=== PATIENT | male | born 1960 | race American Indian/Alaskan Native ===

== ENCOUNTER 2017-05-10 06:00 | Emergency (ER) | payer BC ==
[2017-05-10 06:34] LABS: Bilirubin,Urine Negative (Negative); Blood,Urine Negative (Negative); Ketones,Urine Negative (Negative); Leukocyte Esterase,Urine Negative (Negative); Nitrite,Urine Negative (Negative); Protein,Urine <15 mg/dL mg/dL (Negative); Urobilinogen,Urine < 2.0 mg/dL (<2.0)
[2017-05-10 06:36] LABS: RBC,Urine < 1.0 /HPF (0.0-6.0); WBC,Urine < 1.0 /HPF (0.0-6.0)
[2017-05-10] MEDS ORDERED: SUBLIMAZE IV ONE (08:34)
[2017-05-10] MEDS ORDERED: ZOFRAN IV ONE (08:34)
--- NOTE | 2017-05-10 08:45 | Emergency Department Report ---
HPI - General Chief Complaint: Back Pain/Injury Time Seen by Provider: 05/10/17 08:29 - HPI HPI: Room 3. The patient is a 57-year-old male presenting with a chief complaint of right flank pain. Patient states since yesterday has had a constant sharp pain in his right flank. Patient denies nausea/vomiting, dysuria, hematuria or fever. Patient denies previous episodes of same. The patient gives his pain a score of 9/10. Location: Right flank Duration: Constant since yesterday Quality: Sharp Severity: 9/10 Modifying factors: [see above] Context: [see above] Mode of transportation: [not driving] ED Past Medical Hx - Past Medical History Previous Medical History?: No - Surgical History Past Surgical History?: Yes Additional Surgical History: myleogram - Family History Family history: no significant - Social History Smoking Status: Never Smoker Substance Use Type: None - Medications Home Medications: Home Medications Medication Instructions Recorded Confirmed Last Taken Type Ibuprofen [Motrin 800 MG tab] 800 mg PO Q8HR PRN #20 tablet 05/10/17 Unknown Rx traMADol [Ultram] 50 mg PO Q6HR PRN #14 tablet 05/10/17 Unknown Rx ED Review of Systems ROS: Stated complaint: FLANK PAIN Other details as noted in HPI Comment: All other systems reviewed and negative Constitutional: denies: chills, fever Eyes: denies: eye pain, eye discharge, vision change ENT: denies: ear pain, throat pain Respiratory: denies: cough, shortness of breath, wheezing Cardiovascular: denies: chest pain, palpitations Endocrine: no symptoms reported Gastrointestinal: denies: abdominal pain, nausea, vomiting Genitourinary: denies: hematuria Musculoskeletal: back pain Skin: denies: rash, lesions Neurological: denies: headache, weakness, paresthesias Psychiatric: denies: anxiety, depression Hematological/Lymphatic: denies: easy bleeding, easy bruising Physical Exam - Physical Exam Vital Signs: Vital Signs 05/10/17 05/10/17 05/10/17 06:04 08:13 08:15 Temperature 97.9 F Pulse Rate 78 63 Respiratory 19 Rate Blood Pressure 143/97 132/88 O2 Sat by Pulse 99 98 99 Oximetry 05/10/17 08:31 Temperature Pulse Rate Respiratory 18 Rate Blood Pressure O2 Sat by Pulse 98 Oximetry Physical Exam: GENERAL: The patient is well-developed well-nourished male lying on stretcher not appearing to be in acute distress. [] HEENT: Normocephalic. Atraumatic. Extraocular motions are intact. Patient has moist mucous membranes. NECK: Supple. Trachea midline CHEST/LUNGS: Clear to auscultation. There is no respiratory distress noted. HEART/CARDIOVASCULAR: Regular. There is no tachycardia. There is no gallop rub or murmur. ABDOMEN: Abdomen is soft, nontender. Patient has normal bowel sounds. There is no abdominal distention. SKIN: There is no rash. There is no edema. There is no diaphoresis. NEURO: The patient is awake, alert, and oriented. The patient is cooperative. The patient has normal speech MUSCULOSKELETAL: There is no CVA tenderness. There is no evidence of acute injury. ED Course Vital Signs 05/10/17 05/10/17 05/10/17 06:04 08:13 08:15 Temperature 97.9 F Pulse Rate 78 63 Respiratory 19 Rate Blood Pressure 143/97 132/88 O2 Sat by Pulse 99 98 99 Oximetry 05/10/17 08:31 Temperature Pulse Rate Respiratory 18 Rate Blood Pressure O2 Sat by Pulse 98 Oximetry ED Medical Decision Making - Lab Data Result diagrams: 05/10/17 08:58 05/10/17 08:58 Laboratory Tests 05/10/17 05/10/17 05/10/17 06:12 08:58 08:58 WBC 6.0 RBC 5.20 H Hgb 14.1 Hct 43.9 MCV 84 MCH 27 L MCHC 32 RDW 14.6 Plt Count 220 Add Manual Diff Complete Total Counted 100 Seg Neutrophils % Whipped Topping Mixer Seg Neuts % (Manual) 39.0 L Band Neutrophils % 3.0 Lymphocytes % (Manual) 45.0 H Reactive Lymphs % (Man) 0 Monocytes % (Manual) 8.0 H Eosinophils % (Manual) 5.0 H Basophils % (Manual) 0 Metamyelocytes % 0 Myelocytes % 0 Promyelocytes % 0 Blast Cells % 0 Nucleated RBC % Not Reportable Seg Neutrophils # Man 2.3 Band Neutrophils # 0.2 Lymphocytes # (Manual) 2.7 Abs React Lymphs (Man) 0.0 Monocytes # (Manual) 0.5 Eosinophils # (Manual) 0.3 Basophils # (Manual) 0.0 Metamyelocytes # 0.0 Myelocytes # 0.0 Promyelocytes # 0.0 Blast Cells # 0.0 WBC Morphology Not Reportable Hypersegmented Neuts Not Reportable Hyposegmented Neuts Not Reportable Hypogranular Neuts Not Reportable Smudge Cells Not Reportable Toxic Granulation Not Reportable Toxic Vacuolation Not Reportable Dohle Bodies Not Reportable Pelger-Huet Anomaly Not Reportable Nolan Rods Not Reportable Platelet Estimate Not Reportable Clumped Platelets Not Reportable Plt Clumps, EDTA Not Reportable Large Platelets Not Reportable Giant Platelets Not Reportable Platelet Satelliting Not Reportable Plt Morphology Comment Not Reportable RBC Morphology Not Reportable Dimorphic RBCs Not Reportable Polychromasia Not Reportable Hypochromasia Not Reportable Poikilocytosis Not Reportable Anisocytosis Few Microcytosis Not Reportable Macrocytosis Not Reportable Spherocytes Not Reportable Pappenheimer Bodies Not Reportable Sickle Cells Not Reportable Target Cells Not Reportable Tear Drop Cells Not Reportable Ovalocytes Not Reportable Helmet Cells Not Reportable Vaneg[place] Bodies Not Reportable [place] Rings Not Reportable [place] Cells Not Reportable Bite Cells Not Reportable Crenated Cell Not Reportable Elliptocytes Not Reportable Acanthocytes (Spur) Not Reportable Rouleaux Not Reportable Hemoglobin C Crystals Not Reportable Schistocytes Not Reportable Malaria parasites Not Reportable Henry Bodies Not Reportable Hem Pathologist Commnt No Sodium 139 Potassium 3.9 Chloride 102.6 Carbon Dioxide 26 Anion Gap 14 BUN 16 Creatinine 0.8 Estimated GFR > 60 BUN/Creatinine Ratio 20 Glucose 118 H Calcium 8.8 Total Bilirubin 0.20 AST 34 ALT 35 Alkaline Phosphatase 55 Total Protein 6.9 Albumin 3.9 Albumin/Globulin Ratio 1.3 Urine Color Yellow Urine Turbidity Clear Urine pH 6.0 Ur Specific [place] 1.015 Urine Protein <15 mg/dl Urine Glucose (UA) Negative Urine Ketones Negative Urine Blood Negative Urine Nitrite Negative Urine Bilirubin Negative Urine Urobilinogen < 2.0 Ur Leukocyte Esterase Negative Urine WBC (Auto) < 1.0 Urine RBC (Auto) < 1.0 - Radiology Data Radiology results: report reviewed (CT abdomen and pelvis), image reviewed (CT abdomen and pelvis) CT ABDOMEN AND PELVIS WITHOUT AND WITH CONTRAST INDICATION: Right flank pain. COMPARISON: None similar. FINDINGS: Abdomen and pelvis CT performed before and after intravenous administration of 100 cc of Omnipaque 300. LUNG BASES: Bibasilar dependent atelectasis posteriorly and mild right basilar atelectasis. Top normal heart size. Nonspecific distal esophageal wall prominence/thickening, not excluded for gastroesophageal reflux and/or hiatal hernia, amongst others. Right hemidiaphragm slightly elevated. ABDOMEN: Precontrast images demonstrate no radiopaque gallstones or renal calculi. Postcontrast images demonstrate unremarkable liver, spleen, gallbladder, pancreas, adrenals, aorta, IVC and kidneys. Approximately 1 cm right renal cortical cyst medially. No ascites or size significant adenopathy. Nonopacified GI tract evaluation limited, though grossly nonobstructive. Normal appendix. Predominantly ascending and redundant transverse colon stool/possible constipation. Numerous descending colon diverticuli. Fat-containing umbilical hernia with a transverse defect of 1.5 cm. PELVIS: Urinary bladder, seminal vesicles, prostate and rectosigmoid within normal limits for age. No free fluid or significant adenopathy. No acute osseous process. CONCLUSION: No acute abdomen or pelvic CT abnormality with various incidental findings, as above. Please correlate. Thank you for the opportunity to participate in this patient's care. Transcribed By: RS Dictated By: MARGO POLANCO MD Electronically Authenticated By: MARGO POLANCO MD Signed Date/Time: 05/10/17 1100 DD/ 1053 TD/TT: 05/10/17 1100 - Differential Diagnosis renal colic, aortic dissection, pyelonephritis Critical care attestation.: If time is entered above; I have spent that time in minutes in the direct care of this critically ill patient, excluding procedure time. ED Disposition Clinical Impression: Acute right flank pain Disposition: DC-01 TO HOME OR SELFCARE Is pt being admited?: No Does the pt Need Aspirin: No Condition: Stable Instructions: Flank Pain (ED) Additional Instructions: Return to the emergency department immediately should you develop worsening symptoms, fever, inability to tolerate food or liquid or any other concerns. Prescriptions: Ibuprofen [Motrin 800 MG tab] 800 mg PO Q8HR PRN #20 tablet PRN Reason: Pain traMADol [Ultram] 50 mg PO Q6HR PRN #14 tablet PRN Reason: Pain Referrals: PRIMARY CARE, [Primary Care Provider] - 3-5 Days MELANY RAMÍREZ MD [Staff Physician] - 3-5 Days (Dr. Ramírez is an orthopedic surgeon. Please follow-up with him for further evaluation) Time of Disposition: 11:26
[2017-05-10 09:16] LABS: Hematocrit 43.9 % (35.5-45.6); Hemoglobin 14.1 gm/dl (11.8-15.2); Mean Corpuscular HGB Conc 32 % (32-34); Mean Corpuscular Hemoglobin 27 pg (28-32); Mean Corpuscular Volume 84 fl (84-94); Platelet Count 220 K/mm3 (140-440); Red Cell Distribution Width 14.6 % (13.2-15.2)
[2017-05-10 09:32] LABS: Alanine Aminotransferase 35 units/L (7-56); Albumin 3.9 g/dL (3.9-5); Albumin/Globulin Ratio 1.3 %; Alkaline Phosphatase 55 units/L (35-129); Anion Gap 14 mmol/L; BUN/Creatinine Ratio 20; Blood Urea Nitrogen 16 mg/dL (9-20); Calcium 8.8 mg/dL (8.4-10.2); Carbon Dioxide 26 mmol/L (22-30); Chloride 102.6 mmol/L (98-107); Glucose 118 mg/dL (75-100); Potassium 3.9 mmol/L (3.6-5.0); Sodium 139 mmol/L (137-145); Total Protein 6.9 g/dL (6.3-8.2)
[2017-05-10 10:04] LABS: Basophils % (Manual) 0 % (0.0-1.8); Blastocytes % (Manual) 0 %
[2017-05-10 10:05] LABS: Anisocytosis Few; Diff Status Complete
--- NOTE | 2017-05-10 11:05 | Cat Scan Report ---
CT ABDOMEN AND PELVIS WITHOUT AND WITH CONTRAST INDICATION: Right flank pain. COMPARISON: None similar. FINDINGS: Abdomen and pelvis CT performed before and after intravenous administration of 100 cc of Omnipaque 300. LUNG BASES: Bibasilar dependent atelectasis posteriorly and mild right basilar atelectasis. Top normal heart size. Nonspecific distal esophageal wall prominence/thickening, not excluded for gastroesophageal reflux and/or hiatal hernia, amongst others. Right hemidiaphragm slightly elevated. ABDOMEN: Precontrast images demonstrate no radiopaque gallstones or renal calculi. Postcontrast images demonstrate unremarkable liver, spleen, gallbladder, pancreas, adrenals, aorta, IVC and kidneys. Approximately 1 cm right renal cortical cyst medially. No ascites or size significant adenopathy. Nonopacified GI tract evaluation limited, though grossly nonobstructive. Normal appendix. Predominantly ascending and redundant transverse colon stool/possible constipation. Numerous descending colon diverticuli. Fat-containing umbilical hernia with a transverse defect of 1.5 cm. PELVIS: Urinary bladder, seminal vesicles, prostate and rectosigmoid within normal limits for age. No free fluid or significant adenopathy. No acute osseous process. CONCLUSION: No acute abdomen or pelvic CT abnormality with various incidental findings, as above. Please correlate. Thank you for the opportunity to participate in this patient's care.
[2017-05-10 11:52] VITALS: BP 129/81
== END 2017-05-10 11:51 | disposition home or self-care (01) ==
LOC: ED 06:00
DX: R10.30 Lower abdominal pain, unspecified (principal)
CPT/HCPCS: 36415; 74178; 80053; 81001; 85007; 85025; 96374; 96375; 99284; J2405; J3010; Q9967

== ENCOUNTER 2017-09-04 04:53 | Emergency (ER) | payer BC ==
[2017-09-04 05:18] VITALS: BP 132/85
--- NOTE | 2017-09-04 05:27 | Emergency Department Report ---
ED ENT HPI - General Chief complaint: Sore Throat Stated complaint: SORE THROAT,RECTUM PAIN Time Seen by Provider: 09/04/17 05:21 Source: patient Mode of arrival: Ambulatory Limitations: No Limitations - History of Present Illness Initial comments: Patient is a 57-year-old -[place] male who presents for sore throat 1 week pain describing it as is exacerbated by swallowing pain worse tonight patient states nocturnal fever has not checked but states fever there is no shortness of breath no ear pain there is no headache no nausea no vomiting patient denies cough . MD complaint: sore throat, difficulty swallowing Onset/Timin -: week(s) Location: throat Severity: moderate Severity scale (0 -10): 4 Quality: burning, aching, sharp Consistency: intermittent Improves with: none Worsens with: none Associated Symptoms: pain with swallowing, sore throat. denies: fever, cough, gum swelling, toothache, tinnitus, discharge from ear, rhinorrhea - Related Data Previous Rx's Medication Instructions Recorded Last Taken Type Ibuprofen [Motrin 800 MG tab] 800 mg PO Q8HR PRN #20 tablet 05/10/17 Unknown Rx traMADol [Ultram] 50 mg PO Q6HR PRN #14 tablet 05/10/17 Unknown Rx Amoxicillin 500 mg PO TID #30 capsule 09/04/17 Unknown Rx Benzocaine/Menth/Cetylpyrd 8 lozenge PO PRN PRN #3 packet 09/04/17 Unknown Rx [Cepacol X Strength] Ibuprofen 800 mg PO TID PRN #30 tablet 09/04/17 Unknown Rx Allergies Allergy/AdvReac Type Severity Reaction Status Date / Time hydrocodone AdvReac Vomiting Verified 09/04/17 05:01 ED Dental HPI - General Chief complaint: Sore Throat Stated complaint: SORE THROAT,RECTUM PAIN Time Seen by Provider: 09/04/17 05:21 Source: patient Mode of arrival: Ambulatory Limitations: No Limitations - Related Data Previous Rx's Medication Instructions Recorded Last Taken Type Ibuprofen [Motrin 800 MG tab] 800 mg PO Q8HR PRN #20 tablet 05/10/17 Unknown Rx traMADol [Ultram] 50 mg PO Q6HR PRN #14 tablet 05/10/17 Unknown Rx Amoxicillin 500 mg PO TID #30 capsule 09/04/17 Unknown Rx Benzocaine/Menth/Cetylpyrd 8 lozenge PO PRN PRN #3 packet 09/04/17 Unknown Rx [Cepacol X Strength] Ibuprofen 800 mg PO TID PRN #30 tablet 09/04/17 Unknown Rx Allergies Allergy/AdvReac Type Severity Reaction Status Date / Time hydrocodone AdvReac Vomiting Verified 09/04/17 05:01 ED Review of Systems ROS: Stated complaint: SORE THROAT,RECTUM PAIN Other details as noted in HPI Constitutional: chills, fever, malaise Eyes: denies: eye pain, eye discharge, vision change ENT: epistaxis. denies: ear pain, throat pain Respiratory: no symptoms reported Cardiovascular: denies: chest pain, palpitations Endocrine: no symptoms reported Gastrointestinal: denies: abdominal pain, nausea, diarrhea Genitourinary: denies: urgency, dysuria Musculoskeletal: denies: back pain, joint swelling, arthralgia Skin: denies: rash, lesions Neurological: denies: headache, weakness, paresthesias Hematological/Lymphatic: denies: easy bleeding, easy bruising ED Past Medical Hx - Past Medical History Previous Medical History?: No - Surgical History Past Surgical History?: Yes Additional Surgical History: myleogram - Social History Smoking Status: Never Smoker - Medications Home Medications: Home Medications Medication Instructions Recorded Confirmed Last Taken Type Ibuprofen [Motrin 800 MG tab] 800 mg PO Q8HR PRN #20 tablet 05/10/17 Unknown Rx traMADol [Ultram] 50 mg PO Q6HR PRN #14 tablet 05/10/17 Unknown Rx Amoxicillin 500 mg PO TID #30 capsule 09/04/17 Unknown Rx Benzocaine/Menth/Cetylpyrd 8 lozenge PO PRN PRN #3 packet 09/04/17 Unknown Rx [Cepacol X Strength] Ibuprofen 800 mg PO TID PRN #30 tablet 09/04/17 Unknown Rx ED Physical Exam - General Limitations: No Limitations General appearance: alert, in no apparent distress - Head Head exam: Present: atraumatic, normocephalic - Eye Eye exam: Present: normal appearance, PERRL, EOMI Pupils: Present: normal accommodation - ENT ENT exam: Present: mucous membranes moist, TM's normal bilaterally - Expanded ENT Exam Expanded Mouth exam: Present: normal external inspection Teeth exam: Present: normal inspection Throat exam: Positive: tonsillar erythema, tonsillomegaly, tonsillar exudate. Negative: R peritonsillar mass, L peritonsillar mass - Neck Neck exam: Present: normal inspection, tenderness, full ROM. Absent: lymphadenopathy, thyromegaly - Respiratory Respiratory exam: Present: normal lung sounds bilaterally, wheezes, rales. Absent: respiratory distress, chest wall tenderness - Cardiovascular Cardiovascular Exam: Present: regular rate, normal rhythm, normal heart sounds - GI/Abdominal GI/Abdominal exam: Present: soft, normal bowel sounds. Absent: distended, tenderness, guarding, rebound, rigid, organomegaly, mass, bruit, pulsatile mass , hernia - Rectal Rectal exam: Present: deferred - exam: Present: normal inspection - Extremities Exam Extremities exam: Present: normal inspection, full ROM - Back Exam Back exam: Present: normal inspection, full ROM. Absent: tenderness, CVA tenderness (R), CVA tenderness (L), muscle spasm, paraspinal tenderness, vertebral tenderness, rash noted - Neurological Exam Neurological exam: Present: alert, oriented X3, CN II-XII intact, normal gait, reflexes normal - Psychiatric Psychiatric exam: Present: normal affect, normal mood - Skin Skin exam: Present: warm, dry, intact, normal color. Absent: rash ED Course Vital Signs 09/04/17 05:02 Temperature 99.1 F Pulse Rate 76 Respiratory 18 Rate Blood Pressure 132/85 O2 Sat by Pulse 97 Oximetry ED Medical Decision Making - Medical Decision Making rapid strep screen: negative however given lesions and exudate will treat with amoxicillin 50 , ibuprofen prn pain , cepacol lozenges pt will follow up with pcp in 2-3 days , pt verbalized agreement and understanding of same. Critical care attestation.: If time is entered above; I have spent that time in minutes in the direct care of this critically ill patient, excluding procedure time. ED Disposition Clinical Impression: Dysphagia Pharyngitis Qualifiers: Pharyngitis/tonsillitis etiology: unspecified etiology Qualified Code(s): J02.9 - Acute pharyngitis, unspecified Disposition: TO HOME OR SELFCARE Is pt being admited?: No Does the pt Need Aspirin: No Condition: Critical Instructions: Pharyngitis (ED) Prescriptions: Amoxicillin 500 mg PO TID #30 capsule Benzocaine/Menth/Cetylpyrd [Cepacol X Strength] 8 lozenge PO PRN PRN #3 packet PRN Reason: throat pain Ibuprofen 800 mg PO TID PRN #30 tablet PRN Reason: pain fever Referrals: RENA RUIZ MD [Staff Physician] - 3-5 Days Forms: Work/School Release Form(ED) Time of Disposition: 05:54
== END 2017-09-04 06:02 | disposition home or self-care (01) ==
LOC: ED 04:53
DX: J02.9 Acute pharyngitis, unspecified (principal); R13.10 Dysphagia, unspecified
CPT/HCPCS: 87116; 87430